=== PATIENT | female | born 1985 | race Two or more races ===

== ENCOUNTER 2019-10-19 21:32 | Emergency (ER) | payer OTHER ==
[~2019-10-19] VITALS: Ht 170.2 cm; Wt 68.0 kg
--- NOTE | 2019-10-19 22:04 | NUR ---
PT AAOX4. AMBULATORY WITH STEADY GAIT. BIBHUSBAND. C/O DOG BITE - LACERATION ON R WRIST. TETANUS NOT UP TO DATE. PT PLACED IN BED 9, RR EVEN AND UNLABORED. VSS. NO ACUTE DISTRESS NOTED. AWAITING MD FOR EVAL. WILL CONTINUE TO MONITOR.
[2019-10-19] MEDS ORDERED: TDAP [DIPH/PERTUSSIS/TET] 0.5 ML VIAL IM ONE ×2 (22:12→22:30)
--- NOTE | 2019-10-19 22:16 | NUR ---
EMT AT BEDSIDE FOR WOUND CARE.
[2019-10-19] MEDS ORDERED: LIDOCAINE HCL/MPF 1% 30 ML VIAL IJ ONE (22:22)
[2019-10-19] MEDS ORDERED: LIDOCAINE HCL/PF 1% 30 ML VIAL TP ONE (22:30)
--- NOTE | 2019-10-19 22:50 | NUR ---
Pa at bedside for suture
--- NOTE | 2019-10-19 23:16 | NUR ---
Patient discharged to home in stable condition. Written and verbal after care instructions given. Patient verbalizes understanding of instruction and RX. Pt told to come back in ten days. VSS. Ambulated with steady gait. VSS.
[2019-10-19 23:17] VITALS: BP 132/86
== END 2019-10-19 23:17 | disposition home or self-care (01) ==
LOC: ER 21:41
DX: S61.511A Laceration without foreign body of right wrist, initial encounter (principal); W54.0XXA Bitten by dog, initial encounter; Y93.89 Activity, other specified; Y92.89 Other specified places as the place of occurrence of the external cause; Y99.8 Other external cause status
CPT/HCPCS: 12002; 73110; 90471; 90715; 99283; A6403; J3490 ×2